=== PATIENT | male | born 1945 | race Caucasian/White ===

== ENCOUNTER → 2017-04-28 | Outpatient (CLI) | payer MEDICARE, BC ==
[2016-03-26 07:41] VITALS: BP 162/94
[~2017-04-28] MED LIST: AMOX500C PO; ASPI325T8 PO; CONTRAST GIVEN MC PRN; FURO40TA4 PO; IOHEXOL 350 MG/ML 100 ML VIAL. IV ONE; LEVO500T59 PO; LISI-334 PO; METO25TA4 PO; METO50TA2 PO; PANT40TA3 PO; POTA20TA12 PO; POTA20TA82 PO; SIMV80TA3 PO; SULF1TAB24 PO
[2017-04-28 08:54] LABS: CREATININE 1.5 mg/dL (0.7-1.3); GFR 46.1; POTASSIUM 4.7 mmol/L (3.5-5.1)
--- NOTE | 2017-04-28 10:16 | RAD ---
CT angiography chest, abdomen and pelvis with contrast 04/28/2017 at 0924 hours Indication: Aortic dissection Comparison: CT chest/abdomen/pelvis 03/25/2016 Technique: Multiple axial CT images of the chest were obtained after the administration of intravenous contrast. 75 mL's of Omnipaque 350 were administered intravenously. Coronal and sagittal reformats are provided. 3-D reconstructions are available. Findings: Vascular findings: An aortic valvular prosthesis is present. Postsurgical changes from a descending aorta repair are identified. The aorta at the sinotubular junction measures 4.1 cm, similar to the prior examination. When measured in similar dimensions, the proximal aortic arch is stable measuring 3.7 cm. There is a common origin of the right brachiocephalic and left common carotid artery. There is a stable penetrating aortic ulcer identified involving the proximal descending aorta (series 3, image 44). There is redemonstration of aortic dissection beginning at the junction of the descending thoracic aorta and abdominal aorta at the diaphragmatic hiatus. The true lumen is patent and supplies the celiac origin which has moderate to high-grade stenosis at the origin with post stenotic dilatation measuring 13 mm, previously measuring similar on 03/25/2016. The false lumen is thrombosed at this level. The true lumen supplies the superior mesenteric artery which is patent. The true lumen at this level measures 2.9 x 1.4 cm, stable. The true lumen supplies the right renal artery. The true lumen supplies the left renal artery as well, however starts to fill the false lumen at the level of the left renal artery origin. The true lumen fills the inferior mesenteric artery which is widely patent. The false lumen predominantly fills the left common iliac artery which is widely patent. The dissection flap extends into the proximal left common iliac artery. The dissection flap extends into the right common iliac artery, right external iliac artery and right internal iliac artery. The true lumen supplies the right external and common femoral artery. The true lumen predominantly fills branches of the right internal iliac artery. Findings are stable from the prior examination from 03/25/2016. Nonvascular findings: Thyroid gland is within normal limits. There are no enlarged lymph nodes in the axilla, medial sternum or hilar regions. Heart size is borderline enlarged. No pericardial effusion. No pleural effusions. No suspicious pulmonary nodules. No focal pulmonary infiltrates. No pulmonary vascular congestion or pneumothorax. Median sternotomy changes are present. The liver, spleen, bilateral adrenal glands, and pancreas are within normal limits. Gallbladder is surgically absent. There are no enlarged lymph nodes in the abdomen or pelvis. There is no abdominal free air. No free fluid in the abdomen or pelvis. Small and large bowel loops are normal in caliber. Colonic diverticulosis is present without adjacent inflammatory changes. A normal appendix is visualized. Numerous simple appearing renal cysts are present and stable from the prior examination. No new or suspicious renal lesions are identified. No hydronephrosis. Kidneys enhance symmetrically. Urinary bladder is within normal limits given degree of distention. Prostate and seminal vesicles are normal. No suspicious osseous lesions are identified. Stable appearance of a T8 compression deformity. Impression: 1. 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 2. Status post post surgical changes from aortic valvular prosthesis and proximal thoracic aortic repair. There is stable appearance of proximal aorta dimensions. 3. 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 There is poststenotic dilatation which appear stable. PQRS Compliance Statement: One or more of the following individualized dose reduction techniques were utilized for this examination: 1. Automated exposure control 2. Adjustment of the mA and/or kV according to patient size 3. Use of iterative reconstruction technique
== END | disposition home or self-care (01) ==
LOC: CT 09:05
PROVIDERS: ATTEND Thoracic Surgery (Cardiothoracic Vascular Surgery)
DX: I71.00 Dissection of unspecified site of aorta (principal); Z98.890 Other specified postprocedural states
CPT/HCPCS: 36415; 71275; 74174; 80048; Q9967

== ENCOUNTER → 2018-05-27 | Outpatient (CLI) | payer MEDICARE, BC ==
[2016-03-26 07:41] VITALS: BP 162/94
[~2018-05-27] MED LIST changes: -CONTRAST GIVEN MC PRN; -IOHEXOL 350 MG/ML 100 ML VIAL. IV ONE; -METO50TA2 PO; +METO50TA6 PO; -SIMV80TA3 PO; +SIMV80TA7 PO
[2018-05-27 08:08] LABS: CALCIUM 9.1 mg/dL (8.5-10.1); CREATININE 1.7 mg/dL (0.7-1.3); GFR 39.8; POTASSIUM 4.5 mmol/L (3.5-5.1)
[2018-05-27 08:09] LABS: CHOLESTEROL/HDL RATIO 3.2
--- NOTE | 2018-05-27 11:57 | CARD ---
MR#: [id number] Date of Study: 05/27/2018 Ordering Physician: REY DURON, Referring Physician: REY DURON, Tech: Pat Mckeon APPROVED REPORT EXAM: Two-dimensional and M-mode echocardiogram with Doppler and color Doppler. Other Information Quality : AverageHR: 62bpm INDICATION Aortic Dissection RISK FACTORS Hypertension Hyperlipidemia Previous Smoker 2D DIMENSIONS RVDd3.8 (2.9-3.5cm)Left Atrium(2D)4.6 (1.6-4.0cm) IVSd1.3 (0.7-1.1cm)Aortic Root(2D)4.2 (2.0-3.7cm) LVDd5.3 (3.9-5.9cm)LVOT Diameter2.2 (1.8-2.4cm) PWd1.3 (0.7-1.1cm)LVDs4.0 (2.5-4.0cm) FS (%) 24.9 %SV65.5 ml LVEF(%)48.9 (>50%) Aortic Valve AoV Peak Keo.244.6cm/sAoV VTI55.0cm AO Peak GR.23.9mmHgLVOT Peak Keo.101.7cm/s AO Mean GR.15mmHgAVA (VMAX)1.53cm2 Mitral Valve MV E Qbvhjbbk47.4cm/sMV DECEL [id number] MV A Hysdpqhk18.8cm/sE/A Ratio0.9 Pulmonary Valve PV Peak Vbspjutt191.2cm/s Tricuspid Valve TR P. Otcncopj621yf/sRAP ZUXBJOPK4igQh TR Peak Gr.69qgAjRBJX11rrEz Pulmonary Vein S1 Xuvmlkpj00.1cm/sD2 Ylrbcaio95.0cm/s PVa ciuhcvxl620lmya LEFT VENTRICLE The left ventricle is normal size. There is borderline to mild concentric left ventricular hypertroph y. The left ventricular systolic function is normal and the ejection fraction is within normal range. The Ejection Fraction is 50-55%. Septal motion suggestive of conduction defect/prior surgery. There is normal LV segmental wall motion. Transmitral Doppler flow pattern is normal for age. RIGHT VENTRICLE The right ventricle is mild to moderately dilated. The right ventricular systolic function is normal. ATRIA The left atrium size is normal. The right atrium size is normal. The interatrial septum is intact wit h no evidence for an atrial septal defect or patent foramen ovale as noted on 2-D or Doppler imaging. AORTIC VALVE Doppler and Color Flow revealed no significant aortic regurgitation. The bioprosthetic aortic valve i s not well visualized. MITRAL VALVE The mitral valve is thickened but opens well. There is no mitral valve stenosis. Doppler and Color Fl ow revealed no mitral valve regurgitation noted. TRICUSPID VALVE The tricuspid valve is normal in structure and function. Doppler and Color Flow revealed trace tricus pid regurgitation. There is no tricuspid valve stenosis. PULMONIC VALVE The pulmonic valve is not well visualized. Doppler and Color Flow revealed mild to moderate pulmonic valvular regurgitation. There is no pulmonic valvular stenosis. GREAT VESSELS The aortic root is mildly to moderately enlarged. Normal pulmonary venous flow (Doppler). The IVC was not visualized. PERICARDIAL EFFUSION There is no evidence of significant pericardial effusion. Critical Notification Critical Value: No <Conclusion> The left ventricular systolic function is normal and the ejection fraction is within normal range. Th e Ejection Fraction is 50-55%. Septal motion suggestive of conduction defect/prior surgery. There is normal LV segmental wall motion . The right ventricle is mild to moderately dilated. Doppler and Color Flow revealed mild to moderate pulmonic valvular regurgitation. The aortic root is mildly to moderately enlarged. Signed by : Rey Duron, Electronically Approved : 05/27/2018 11:55:48
== END | disposition home or self-care (01) ==
LOC: ECHO 07:20
PROVIDERS: ATTEND Internal Medicine Cardiovascular Disease
DX: I37.1 Nonrheumatic pulmonary valve insufficiency (principal); I51.7 Cardiomegaly; E78.00 Pure hypercholesterolemia, unspecified; I12.9 Hypertensive chronic kidney disease with stage 1 through stage 4 chronic kidney disease, or unspecified chronic kidney disease; N18.3 Chronic kidney disease, stage 3 (moderate); I25.10 Atherosclerotic heart disease of native coronary artery without angina pectoris; K21.9 Gastro-esophageal reflux disease without esophagitis; Z95.2 Presence of prosthetic heart valve; Z86.79 Personal history of other diseases of the circulatory system; Z82.49 Family history of ischemic heart disease and other diseases of the circulatory system
CPT/HCPCS: 36415; 80048; 80061; 93306

== ENCOUNTER → 2019-07-18 | Outpatient (CLI) | payer MEDICARE, BC ==
[2016-03-26 07:41] VITALS: BP 162/94
[~2019-07-18] MED LIST changes: +CONTRAST GIVEN. MC PRN; +IOHEXOL 350 MG/ML 100 ML VIAL. IV ONE; -PANT40TA3 PO; +PANT40TA77 PO; +SIMV80TA17 PO; -SIMV80TA7 PO
--- NOTE | 2019-07-18 12:08 | CARD ---
MR#: [id number] Date of Study: 07/18/2019 Ordering Physician: SHAD PETERS, Referring Physician: SHAD PETERS, Tech: Maribel Jaramillo APPROVED REPORT EXAM: Two-dimensional and M-mode echocardiogram with Doppler and color Doppler. Other Information Quality : AverageHR: 65bpm Technically limited study due to body habitus. INDICATION Aortic dissection 2D DIMENSIONS RVDd3.7 (2.9-3.5cm)Left Atrium(2D)4.3 (1.6-4.0cm) IVSd1.3 (0.7-1.1cm)Aortic Root(2D)3.2 (2.0-3.7cm) LVDd4.5 (3.9-5.9cm)LVOT Diameter2.1 (1.8-2.4cm) PWd0.8 (0.7-1.1cm)LVDs2.8 (2.5-4.0cm) FS (%) 38.0 %SV64.3 ml LVEF(%)68.2 (>50%) Aortic Valve AoV Peak Keo.208.6cm/sAoV VTI43.8cm AO Peak GR.17.4mmHgLVOT Peak Keo.89.6cm/s LVOT VTI 18.95cmAO Mean GR.11mmHg ALLEN (VMAX)1.28ol1EDV (VTI)1.46cm2 Mitral Valve MV E Qfylozhz42.8cm/sMV DECEL QBKQ555lv MV A Peykoqgd09.0cm/sMV TSN74gr E/A Ratio0.8MVA (PHT)3.23cm2 TDI E/Lateral E'9.3E/Medial E'15.2 Pulmonary Valve PV Peak Cqobajew068.0cm/sPV Peak Grad.6mmHg Tricuspid Valve RAP [id number] Pulmonary Vein S1 Kqvatapd03.4cm/sD2 Mojxnfoa42.7cm/s PVa [id number] LEFT VENTRICLE The left ventricle is normal size. There is borderline to mild septal left ventricular hypertrophy. T he left ventricular systolic function is normal and the ejection fraction is within normal range. The Ejection Fraction is 60-65%. There is normal LV segmental wall motion. Transmitral Doppler flow xi nathaniel is Grade I-abnormal relaxation pattern. RIGHT VENTRICLE The right ventricle is moderately dilated. The right ventricular systolic function is normal. ATRIA The left atrium is mildly dilated. The right atrium size is normal. The interatrial septum is intact with no evidence for an atrial septal defect or patent foramen ovale as noted on 2-D or Doppler imagi ng. AORTIC VALVE The aortic valve is calcified but opens well. There is a bioprosthetic valve of unknown make and size seated in the aortic position. Not well visualized. Doppler and Color Flow revealed no significant a ortic regurgitation. There is no significant aortic valvular stenosis. MITRAL VALVE The mitral valve is thickened but opens well. Mitral annular calcification is mild. There is no evide nce of mitral valve prolapse. There is no mitral valve stenosis. Doppler and Color-flow revealed trac e mitral regurgitation. TRICUSPID VALVE The tricuspid valve is not well visualized. Doppler and Color Flow revealed trace tricuspid regurgita tion. There is no tricuspid valve stenosis. PULMONIC VALVE The pulmonic valve is not well visualized. Doppler and Color Flow revealed mild pulmonic valvular reg urgitation. There is no pulmonic valvular stenosis. GREAT VESSELS The aortic root is normal in size. The Sinus of valsalva and the ascending aorta are both mildly dila clara. The IVC is normal in size and collapses >50% with inspiration. PERICARDIAL EFFUSION There is no pleural effusion. There is no evidence of significant pericardial effusion. Critical Notification Critical Value: No <Conclusion> The left ventricular systolic function is normal and the ejection fraction is within normal range. Th e Ejection Fraction is 60-65%. The right ventricle is moderately dilated. The aortic valve is calcified but opens well. There is a bioprosthetic valve of unknown make and siz e seated in the aortic position. Not well visualized. Technically very difficult study Signed by : Shad Peters, Electronically Approved : 07/18/2019 12:08:03
--- NOTE | 2019-07-18 16:34 | RAD ---
CT angiography, abdomen and pelvis 07/18/2019 INDICATION: Aortic dissection COMPARISON STUDY: CT angiography of the chest abdomen and pelvis April 28, 2017. TECHNIQUE: Multidetector CT imaging of the abdomen and pelvis is obtained before after the administration of IV contrast. 3-D reconstructions of abdominal and pelvic vasculature were created on an independent workstation and reviewed. FINDINGS: There is a Son B dissection beginning within the inferior most thoracic aorta. There is ectasia of the aorta at the level of the diaphragmatic hiatus where it measures 4.5 x 3.5 cm. At this level there is approximately 60-70% reduction of aortic luminal diameter. The true lumen supplies the celiac axis where there is moderate to high-grade stenosis, which is stable. The superior mesenteric artery supplied by the true lumen where there is minimal stenosis. The right renal artery arises anteriorly from the true lumen appears to be patent. Just below the right renal artery there is subsequent further narrowing of the true lumen, resulting in approximately 80% narrowing. Dissection plane extends to the aortic bifurcation down the right common, proximal external, and internal iliac arteries. There is filling of the inferior mesenteric artery from the true lumen. There is then a retrograde flow through the false lumen which supplies the left kidney. The overall configuration is unchanged with respect to comparison study. The left common and internal iliac artery patent. Left external iliac arteries patent. Bilateral common femoral arteries proximal superficial femoral arteries, and profunda arteries are patent. No free fluid or free air seen in the abdomen or pelvis. No acute abnormalities involving the abdominal viscera are identified. Allowing for slight differences in phase of contrast enhancement multiple bilateral renal cysts are similar. No bowel obstruction is identified. Descending and sigmoid colonic diverticulosis noted no evidence of acute diverticulitis is seen. Or mild diverticular disease involving the proximal colon noted. The appendix is unremarkable. No acute abnormalities involving the lung bases are identified. No acute appearing osseous abnormalities are seen. 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 IMPRESSION: 1. Stable configuration of the inferior thoracic and abdominal aorta including stable appearance of type B dissection as described above in detail. 2. No other acute intra-abdominal abnormalities are identified CT DOSING PQRS STATEMENT: One or more of the following individualized dose reduction techniques were utilized for this examination: 1. Automated exposure control 2. Adjustment of the mA and/or kV according to patient size 3. Use of iterative reconstruction technique Electronically signed by: Harvey Bonilla MD (07/18/2019 4:31 PM) [id number]
== END | disposition home or self-care (01) ==
LOC: CT 09:34
PROVIDERS: ATTEND Internal Medicine Cardiovascular Disease
DX: I08.8 Other rheumatic multiple valve diseases (principal); I71.00 Dissection of unspecified site of aorta; I25.10 Atherosclerotic heart disease of native coronary artery without angina pectoris; Z95.5 Presence of coronary angioplasty implant and graft
CPT/HCPCS: 74174; 93306; Q9967

== ENCOUNTER 2021-07-21 19:45 | Inpatient (IN) | payer MEDICARE, BC ==
[2021-07-20 23:00] VITALS: BP 160/88
[~2021-07-21] VITALS: Ht 180.3 cm; Wt 130.0 kg
[~2021-07-21 19:45] MED LIST changes: -CONTRAST GIVEN. MC PRN; -IOHEXOL 350 MG/ML 100 ML VIAL. IV ONE; -LISI-334 PO; +LISI20TA18 PO; +POTA20TA4 PO; -POTA20TA82 PO
--- NOTE | 2021-07-21 20:19 | PHYS DOC ---
Past Medical History Past Medical History: CAD, High Cholesterol, Hypertension Past Surgical History: Coronary Bypass Surgery, Other Additional Past Surgical Histo: aorta repair Smoking Status: Former Smoker Alcohol Use: None Drug Use: None General Adult EDM: Chief Complaint: RECTAL BLEED HPI: HPI: Patient is a 75-year-old male presenting with rectal bleed. Onset was today without any known inciting event, trauma, sick contact, exposure, sick contact or travel. Nothing known makes better, bearing-down makes worse. Patient reports timing of symptoms has been constant since onset this morning. Denies any pain but admits ongoing bright red blood per rectum that appears in losing in his been present on tissue paper and copious amounts in stool. He admits he is on 325 mg aspirin. He has had x1 prior colonoscopy in the 70s and was unremarkable. He does admit he has family history of colon cancer. Denies any significant changes in health or medication recently, denies any obvious changes in stool caliber. Denies any significant symptoms such as fatigue, lightheadedness, dizziness, chest pain, ripping or tearing in chest, shortness of breath or other concerning abnormalities Review of Systems: Review of Systems: Fourteen body systems of review of systems have been reviewed. See HPI for pertinent positives and negative responses, other saini all other systems are negative, non-pertinent or non-contributory Heart Score: C/O Chest Pain: No HEART Score for Chest Pain: HEART Score for Chest Pain Response (Comments) Value History Slighlty/Non-Suspicious 0 Age > 65 2 Risk Factors >3 Risk Factors or Hx CAD 2 Total 4 Risk Factors: Risk Factors: DM, Current or recent (<one month) smoker, HTN, HLP, family history of CAD, obesity. Risk Scores: Score 0 - 3: 2.5% MACE over next 6 weeks - Discharge Home Score 4 - 6: 20.3% MACE over next 6 weeks - Admit for Clinical Observation Score 7 - 10: 72.7% MACE over next 6 weeks - Early Invasive Strategies Allergies: Allergies: Allergies Coded Allergies Type Severity Reaction Last Updated Verified No Known Drug Allergies 02/26/14 No Physical Exam: PE: Constitutional: Well developed, well nourished, age-appropriate male who is am bulatory to ER room in no apparent distress, nontoxic in appearance HENT: Normocephalic, atraumatic, bilateral external ears normal, oropharynx moist, no oral exudates, nose normal. Eyes: PERRLA, EOMI, conjunctiva normal, no discharge. Neck: Normal range of motion, no tenderness, supple, no stridor. Cardiovascular: Heart rate regular, sinus rhythm, no murmurs rubs or gallops Lungs & Thorax: Bilateral breath sounds clear to auscultation Abdomen: Bowel sounds normal, soft, no tenderness, no masses, no pulsatile masses. Nonsurgical abdomen, no peritoneal signs : Genitals unremarkable. Anus examined with blood clots present to external surface of gluteal cheeks. Anal sphincter intact. There is bulging, pearly appearing masslike structure appearing from anus externally with bruising present internally. UNA performed with palpable mass that is cordlike in nature at 12 o'clock position palpated within rectal vault Skin: Warm, dry, no erythema, no rash. Back: No tenderness, no CVA tenderness. Extremities: No tenderness, no cyanosis, no clubbing, ROM intact, no edema. Neurologic: Alert and oriented X 3, grossly normal motor & sensory function, no focal deficits noted. Psychologic: Affect normal, judgement normal, mood normal. Current Patient Data: Labs: Laboratory Tests Test 07/21/21 20:21 White Blood Count 6.3 x10^3/uL Red Blood Count 4.62 x10^6/uL Hemoglobin 14.5 g/dL Hematocrit 42.8 % Mean Corpuscular Volume 93 fL Mean Corpuscular Hemoglobin 31 pg Mean Corpuscular Hemoglobin Concent 34 g/dL Red Cell Distribution Width 14.2 % Platelet Count 239 x10^3/uL Neutrophils (%) (Auto) 56 % Lymphocytes (%) (Auto) 30 % Monocytes (%) (Auto) 11 % Eosinophils (%) (Auto) 3 % Basophils (%) (Auto) 1 % Neutrophils # (Auto) 3.5 x10^3/uL Lymphocytes # (Auto) 1.9 x10^3/uL Monocytes # (Auto) 0.7 x10^3/uL Eosinophils # (Auto) 0.2 x10^3/uL Basophils # (Auto) 0.1 x10^3/uL Prothrombin Time 12.9 SEC Prothromb Time International Ratio 1.0 Activated Partial Thromboplast Time 30 SEC Stool Occult Blood Positive Sodium Level 140 mmol/L Potassium Level 4.1 mmol/L Chloride Level 104 mmol/L Carbon Dioxide Level 23 mmol/L Anion Gap 13 Blood Urea Nitrogen 30 mg/dL Creatinine 1.6 mg/dL Estimated GFR (Cockcroft-Gault) 42.3 BUN/Creatinine Ratio 19 Glucose Level 101 mg/dL Calcium Level 8.8 mg/dL Total Bilirubin 0.5 mg/dL Aspartate Amino Transf (AST/SGOT) 22 U/L Alanine Aminotransferase (ALT/SGPT) 26 U/L Alkaline Phosphatase 92 U/L Total Protein 8.1 g/dL Albumin 3.9 g/dL Albumin/Globulin Ratio 0.9 Vital Signs: Vital Signs Date Time Temp Pulse Resp B/P (MAP) Pulse Ox O2 Delivery O2 Flow Rate FiO2 07/21/21 20:05 98.4 93 18 158/89 (112) 98 Room Air 98.4 Vital Signs Date Time Temp Pulse Resp B/P (MAP) Pulse Ox O2 Delivery O2 Flow Rate FiO2 07/21/21 20:05 98.4 93 18 158/89 (112) 98 Room Air 98.4 EKG: EKG: Alen EKG ordered and interpreted by myself only 40 hours as sinus rhythm 88 bpm, unremarkable intervals, no axis deviation, no obvious ischemic findings, x1 PVC seen, no STEMI Radiology/Procedures: Radiology/Procedures: [] Course & Med Decision Making: Course & Med Decision Making ABCs unremarkable HPI physical exam and comprehensive ER work-up obtained concerning for ongoing lower GI bleed. Unclear if internal hemorrhoids protruding through versus rectal mass in individual who has not had a colonoscopy in the past 50 years with family history of colon cancer Slow oozing present without any active hemorrhage. No indication for any blood transfusion in ER setting but obvious need for urgent GI consultation within upcoming 24 hours. Hospitalist contacted and case reviewed, patient accepted under the care of Dr. Garcia for admission Crystal Disclaimer: Crystal Disclaimer: This electronic medical record was generated, in whole or in part, using a voice recognition dictation system. Departure Departure Impression: Primary Impression: Lower GI bleed Additional Impression: Rectal mass Disposition: ADMITTED INPATIENT Admitting Physician: HOLA (dr becerril) Condition: STABLE Referrals: SINTIA HOWARD MD (PCP) JAMES CURIEL DO Jul 21, 2021 20:19
[2021-07-21 20:34] LABS: BASO # 0.1 x10^3/uL (0.0-0.2); BASO % 1 % (0-3); EOS # 0.2 x10^3/uL (0.0-0.7); EOS % 3 % (0-3); HEMATOCRIT 42.8 % (39.0-53.0); HEMOGLOBIN 14.5 g/dL (13.0-17.5); LYMPH # 1.9 x10^3/uL (1.0-4.8); LYMPH % 30 % (24-48); MEAN CORPUSCULAR HEMOGLOBIN 31 pg (25-35); MEAN CORPUSCULAR HGB CONC 34 g/dL (31-37); MEAN CORPUSCULAR VOLUME 93 fL (79-100); MONO # 0.7 x10^3/uL (0.0-1.1); MONO % 11 % (0-9); NEUT # 3.5 x10^3/uL (1.8-7.7); NEUT % 56 % (31-73); PLATELET COUNT 239 x10^3/uL (140-400); RED BLOOD COUNT 4.62 x10^6/uL (4.30-5.70); RED CELL DISTRIBUTION WIDTH 14.2 % (11.5-14.5); WHITE BLOOD COUNT 6.3 x10^3/uL (4.0-11.0)
[2021-07-21 20:38] LABS: FECAL OB PT POSITIVE (NEG)
[2021-07-21 20:42] LABS: PROTHROMBIN TIME PATIENT 12.9 SEC (11.7-14.0)
[2021-07-21 20:47] LABS: CALCIUM 8.8 mg/dL (8.5-10.1); CREATININE 1.6 mg/dL (0.7-1.3); GFR 42.3; POTASSIUM 4.1 mmol/L (3.5-5.1)
[2021-07-21 20:52] LABS: ALBUMIN 3.9 g/dL (3.4-5.0); ALBUMIN/GLOBULIN RATIO 0.9 (1.0-1.7); TOTAL BILIRUBIN 0.5 mg/dL (0.2-1.0); TOTAL PROTEIN 8.1 g/dL (6.4-8.2)
[2021-07-21 23:00] VITALS: BP 160/88
--- NOTE | 2021-07-21 23:21 | EKG ---
[facility] [address] [place] [address] Test Date: 2021-07-21 Test Time: 20:32:52 Pat Name: MARCY SOLANO Department: Room: 538 1 Gender: M [employer] Fe[employer]: : 1945 Requested By: JAMES CURIEL Order Number: [id number] Reading MD: Rey Duron MD Measurements Intervals [place] Rate: 88 P: 10 TN: 168 QRS: 26 QRSD: 100 T: -12 QT: 372 QTc: 454 Interpretive Statements SINUS RHYTHM PVC'S NON-SPECIFIC ST/T CHANGES Electronically Signed On 07-22-2021 9:09:44 SPECIAL ORDER JEWELER by Rey Duron MD
[2021-07-21] MEDS ORDERED: AMOX500C PO (23:59)
[2021-07-21] MEDS ORDERED: LISI30TA4 PO (23:59)
[2021-07-22] MEDS ORDERED: ACETAMINOPHEN 325 MG TABLET. PO PRN (02:00)
[2021-07-22] MEDS ORDERED: fentaNYL PF VIAL 100 MCG/2 ML VIAL IVP PRN (02:00)
[2021-07-22] MEDS ORDERED: ZOLPIDEM 5 MG TABLET. PO PRN (02:00)
[2021-07-22 02:19] LABS: BASO % 1 % (0-3); EOS # 0.2 x10^3/uL (0.0-0.7); EOS % 3 % (0-3); HEMATOCRIT 39.3 % (39.0-53.0); HEMOGLOBIN 13.1 g/dL (13.0-17.5); LYMPH % 36 % (24-48); MEAN CORPUSCULAR HEMOGLOBIN 31 pg (25-35); MEAN CORPUSCULAR HGB CONC 33 g/dL (31-37); MEAN CORPUSCULAR VOLUME 93 fL (79-100); MONO # 0.6 x10^3/uL (0.0-1.1); MONO % 11 % (0-9); NEUT # 2.8 x10^3/uL (1.8-7.7); NEUT % 50 % (31-73); PLATELET COUNT 215 x10^3/uL (140-400); RED BLOOD COUNT 4.24 x10^6/uL (4.30-5.70); RED CELL DISTRIBUTION WIDTH 14.3 % (11.5-14.5); WHITE BLOOD COUNT 5.6 x10^3/uL (4.0-11.0)
[2021-07-22 03:00] VITALS: BP 130/74
[2021-07-22 06:44] LABS: BASO # 0.1 x10^3/uL (0.0-0.2); BASO % 1 % (0-3); EOS # 0.2 x10^3/uL (0.0-0.7); EOS % 3 % (0-3); HEMATOCRIT 39.6 % (39.0-53.0); HEMOGLOBIN 13.3 g/dL (13.0-17.5); LYMPH # 1.9 x10^3/uL (1.0-4.8); LYMPH % 39 % (24-48); MEAN CORPUSCULAR HEMOGLOBIN 31 pg (25-35); MEAN CORPUSCULAR HGB CONC 34 g/dL (31-37); MEAN CORPUSCULAR VOLUME 92 fL (79-100); MONO # 0.5 x10^3/uL (0.0-1.1); MONO % 11 % (0-9); NEUT # 2.2 x10^3/uL (1.8-7.7); NEUT % 46 % (31-73); PLATELET COUNT 217 x10^3/uL (140-400); RED BLOOD COUNT 4.33 x10^6/uL (4.30-5.70); RED CELL DISTRIBUTION WIDTH 14.4 % (11.5-14.5); WHITE BLOOD COUNT 4.8 x10^3/uL (4.0-11.0)
[2021-07-22 07:00] VITALS: BP 142/69
--- NOTE | 2021-07-22 09:20 | HP ---
DATE OF SERVICE: 07/22/2021 ADMIT DATE: 07/21/2021 CHIEF COMPLAINT: Rectal bleeding. HISTORY OF PRESENT ILLNESS: The patient is a pleasant 75-year-old male who has had a long history of rectal bleeding. He states he usually has large hemorrhoids that developed and then they ruptured. Once again, he thought it might be a rectal bleed from his hemorrhoids, but the ER doctors also concerned it could be a rectal mass. I discussed the case with ER physician. We are going to admit the patient and consult GI. PAST MEDICAL HISTORY: Chronic hemorrhoids, hypertension, CAD, hyperlipidemia, coronary bypass surgery, aorta surgery, previous tobacco abuse. ALLERGIES: None. FAMILY HISTORY: Diabetes. SOCIAL HISTORY: He is retired. Does not drink, smoke or take drugs (he quit smoking). MEDICATIONS: Reviewed, please refer to the MRAD. REVIEW OF SYSTEMS: GENERAL: No history of weight change, weakness or fevers. SKIN: No bruising, hair changes or rashes. EYES: No blurred, double or loss of vision. NOSE AND THROAT: No history of nosebleeds, hoarseness or sore throat. HEART: No history of palpitations, chest pain or shortness of breath on exertion. LUNGS: Denies cough, hemoptysis, wheezing or shortness of breath. GASTROINTESTINAL: He complains of rectal bleeding. GENITOURINARY: No history of frequency, urgency, hesitancy or nocturia. NEUROLOGIC: Denies history of numbness, tingling, tremor or weakness. PSYCHIATRIC: No history of panic, anxiety or depression. ENDOCRINE: No history of heat or cold intolerance, polyuria or polydipsia. EXTREMITIES: Denies muscle weakness, joint pain, pain on walking or stiffness. PHYSICAL EXAMINATION: VITALS: Within normal limits and are stable. GENERAL: No apparent distress. Alert and oriented. HEENT: Normal cephalic atraumatic, external auditory canals are patent EYES: Extraocular muscles are intact, pupils are equally round and reactive to light and accommodation MUSCULOSKELETAL: Well developed, well nourished, good range of motion ENDOCRINE: No thyromegaly was palpated LYMPHATICS: No cervical chain or axillary nodes were noted HEMATOPOIETIC: No bruising NECK: Supple, no JVD, no thyromegaly was noted. LUNGS: Clear to auscultation in all lung davis without rhonchi or wheezing. HEART: RRR, S1, S2 present. Peripheral pulses intact, no obvious murmurs were noted. ABDOMEN: Soft, nontender. Positive bowel sounds no organomegaly, normal bowel sounds. EXTREMITIES: Without any cyanosis, clubbing, or edema. Pedal pulses intact, Homans sign is negative. NEUROLOGIC: Normal speech, normal tone. A and O x 3, moves all extremities, no obvious focal deficits. PSYCHIATRIC: Normal affect, normal mood. Stable. SKIN: No ulcerations or rashes, good skin turgor, no jaundice. VASCULAR: Good capillary refill, neurovascular bundle appears to be intact. LABORATORY DATA: Hematology is normal. Electrolytes are normal other than a BUN of 30 and creatinine 1.6. INR is 1. Stool occult blood was positive. COVID testing is negative. IMAGING: Pending. ASSESSMENT AND PLAN: Rectal bleeding with possible mass. The patient has been admitted. We are consulting GI. Trend hemoglobin. Home meds. Deep venous thrombosis prophylaxis. Full code. I held his home aspirin for now until the bleeding stops. We will also consult Nephrology regarding his chronic renal insufficiency. AMBROSIO DR: Gilberto TID: [id number]
--- NOTE | 2021-07-22 09:36 | PDOC2 ---
GI CONSULT Date of Service: DATE: 07/22/21 TIME: 09:36 Reason For Consult: lower GI bleed, rectal mass HPI: HPI: 75 y/o male admitted through ER. H/o intermittent rectal bleeding - small amounts of red blood associated w/ hard stools/straining and "irritation" - something "comes out and then goes back in" - possible hemorrhoid history. Yesterday bleeding recurred and was more significant. To ER where rectal exam showed "oozing hemorrhoids" - "bulging pearly mass with bruising" and "palpable cordlike mass in rectal vault at 12:00." Bleeding ongoing overnight - noted on bedding. Lab and vitals normal/stable. Denies reflux/heartburn, dysphagia, n/v, abd pain, diarrhea (though sometimes has a loose stool if he has more than one stool in a day), chronic constipation (does describe stool "coming out forcefully in a ball"), change in appetite, or weight loss. Describes "upper and lower GI" in the 1970s - recalls colon prep, says lower procedure done in primary doctor's office, upper procedure done at perhaps a surgery center - apparently awake for both. Diverticulosis on past imaging. S/p cholecystectomy. No liver, pancreas, or PUD history. On ASA. H/o urinary retention - self caths at home. Father had colon cancer. PMH: PMH: HTN, HLD, urinary retention, CKD, UTI, arthritis, endocarditis, DVT, asthma aortic dissection repair, AVR, cholecystectomy, left inguinal hernia repair FH: Family History: Cancer (colon - father) Social History: Smoke: Quit ALCOHOL: none Drugs: None ROS: GEN: Denies fevers, chills, sweats HEENT: Denies blurred vision, sore throat CV: Denies chest pain RESP: Denies shortness of air, cough GI: Per HPI : Denies hematuria, dysuria ENDO: Denies weight changes NEURO: Denies confusion, dizziness MSK: Denies weakness, joint pain/swelling SKIN: Denies jaundice, pruritus Vitals: Vitals: Vital Signs Date Time Temp Pulse Resp B/P (MAP) Pulse Ox O2 Delivery O2 Flow Rate FiO2 07/22/21 07:00 97.8 69 20 142/69 (93) 97 Room Air 97.8 Labs: Labs: Laboratory Tests Test 07/21/21 20:21 07/21/21 21:35 07/22/21 01:55 07/22/21 05:30 White Blood Count 6.3 x10^3/uL (4.0-11.0) 5.6 x10^3/uL (4.0-11.0) 4.8 x10^3/uL (4.0-11.0) Red Blood Count 4.62 x10^6/uL (4.30-5.70) 4.24 x10^6/uL (4.30-5.70) 4.33 x10^6/uL (4.30-5.70) Hemoglobin 14.5 g/dL (13.0-17.5) 13.1 g/dL (13.0-17.5) 13.3 g/dL (13.0-17.5) Hematocrit 42.8 % (39.0-53.0) 39.3 % (39.0-53.0) 39.6 % (39.0-53.0) Mean Corpuscular Volume 93 fL (79-100) 93 fL (79-100) 92 fL (79-100) Mean Corpuscular Hemoglobin 31 pg (25-35) 31 pg (25-35) 31 pg (25-35) Mean Corpuscular Hemoglobin Concent 34 g/dL (31-37) 33 g/dL (31-37) 34 g/dL (31-37) Red Cell Distribution Width 14.2 % (11.5-14.5) 14.3 % (11.5-14.5) 14.4 % (11.5-14.5) Platelet Count 239 x10^3/uL (140-400) 215 x10^3/uL (140-400) 217 x10^3/uL (140-400) Neutrophils (%) (Auto) 56 % (31-73) 50 % (31-73) 46 % (31-73) Lymphocytes (%) (Auto) 30 % (24-48) 36 % (24-48) 39 % (24-48) Monocytes (%) (Auto) 11 % (0-9) 11 % (0-9) 11 % (0-9) Eosinophils (%) (Auto) 3 % (0-3) 3 % (0-3) 3 % (0-3) Basophils (%) (Auto) 1 % (0-3) 1 % (0-3) 1 % (0-3) Neutrophils # (Auto) 3.5 x10^3/uL (1.8-7.7) 2.8 x10^3/uL (1.8-7.7) 2.2 x10^3/uL (1.8-7.7) Lymphocytes # (Auto) 1.9 x10^3/uL (1.0-4.8) 2.0 x10^3/uL (1.0-4.8) 1.9 x10^3/uL (1.0-4.8) Monocytes # (Auto) 0.7 x10^3/uL (0.0-1.1) 0.6 x10^3/uL (0.0-1.1) 0.5 x10^3/uL (0.0-1.1) Eosinophils # (Auto) 0.2 x10^3/uL (0.0-0.7) 0.2 x10^3/uL (0.0-0.7) 0.2 x10^3/uL (0.0-0.7) Basophils # (Auto) 0.1 x10^3/uL (0.0-0.2) 0.0 x10^3/uL (0.0-0.2) 0.1 x10^3/uL (0.0-0.2) Prothrombin Time 12.9 SEC (11.7-14.0) Prothromb Time International Ratio 1.0 (0.8-1.1) Activated Partial Thromboplast Time 30 SEC (24-38) Stool Occult Blood Positive (NEG) Sodium Level 140 mmol/L (136-145) Potassium Level 4.1 mmol/L (3.5-5.1) Chloride Level 104 mmol/L (98-107) Carbon Dioxide Level 23 mmol/L (21-32) Anion Gap 13 (6-14) Blood Urea Nitrogen 30 mg/dL (8-26) Creatinine 1.6 mg/dL (0.7-1.3) Estimated GFR (Cockcroft-Gault) 42.3 BUN/Creatinine Ratio 19 (6-20) Glucose Level 101 mg/dL (70-99) Lactic Acid Level 1.4 mmol/L (0.4-2.0) Calcium Level 8.8 mg/dL (8.5-10.1) Total Bilirubin 0.5 mg/dL (0.2-1.0) Aspartate Amino Transf (AST/SGOT) 22 U/L (15-37) Alanine Aminotransferase (ALT/SGPT) 26 U/L (16-63) Alkaline Phosphatase 92 U/L (46-116) Total Protein 8.1 g/dL (6.4-8.2) Albumin 3.9 g/dL (3.4-5.0) Albumin/Globulin Ratio 0.9 (1.0-1.7) SARS-CoV-2 Antigen (Rapid) Negative (NEGATIVE) Allergies: Coded Allergies: No Known Drug Allergies (Unverified , 02/26/14) Medications: see EMR Imaging: Imaging: none this admission - reviewed from past - see records PE: GEN: NAD - sitting on edge of bed w/ tray of clears, has shirt on but no bottoms, some spots of dried red blood on bedding HEENT: Atraumatic, PERRL LUNGS: CTAB HEART: RRR ABD: NABS, S/NT, round/large EXTREMITY: No edema SKIN: No rashes, no jaundice NEURO/PSYCH: A & O 3 rectal exam deferred A/P: A/P: Rectal bleeding, abnormal rectal exam H/o AVR, CKD CRC screen - ?colonoscopy in the 1970s Diverticulosis S/p cholecystectomy FH colon cancer -- Significant time spent - we discussed options moving forward including colonoscopy (probably can pursue in outpatient setting if remains stable) - he's not sure he'd like to proceed but will consider. Hold ASA if able, observe for ongoing bleeding, follow labs (Hgb x 3 WNL), keep to clear liquids for now. Will return w/ Dr. Domínguez later. CHACHO HAGEN Jul 22, 2021 09:36
[2021-07-22] MEDS: LISINOPRIL 10 MG TABLET PO SCH (09:46)
[2021-07-22] MEDS: POTASSIUM CHLORIDE 20 MEQ TABLET.ER. PO SCH (09:47)
[2021-07-22] MEDS: METOPROLOL TART IMMED RELEASE 50 MG TABLET. PO SCH ×2 (09:50→20:26)
[2021-07-22 11:00] VITALS: BP 126/75
--- NOTE | 2021-07-22 11:03 | PDOC2 ---
CONSULT Date of Consult Date of Consult DATE: 07/22/21 TIME: 10:57 Reason for Consult Reason for Consult: CKD VS NURY Referring Physician Referring Physician: ALINE Identification/Chief Complaint Chief Complaint RECTAL BLEEDING Source Source: Chart review, Patient History of Present Illness Reason for Visit: THIS IS A 75 YR OLD WITH HX OF RECTAL BLEEDING. PRESENTS WITH BLEEDING AGAIN. UNDERGOING GI EVAL NOW. RENAL CONSULT FOR CR OF 1.6. OLD RECORDS SHOW CKD STAGE 3B WITH CR OF 1.6. HAS HX OF URINARY RETENTION AND HAS BEEN DOING ONCE DAILY SELF CATH SINCE 2009. HEMODYNAMICALLY STABLE. NO NEPHROTOXINS NOTED. NO FURTHER UROLOGY HX TO REVIEW HERE AND HE DOES NOT KNOW WHERE OR WHICH UROLOGIST HE SAW IN THE PAST. Past Medical History Cardiovascular: HTN, Hyperlipidemia, Other Pulmonary: No pertinent hx CENTRAL NERVOUS SYSTEM: Other GI: GERD Heme/Onc: No pertinent hx Hepatobiliary: No pertinent hx Psych: No pertinent hx Musculoskeletal: Osteoarthritis Rheumatologic: No pertinent hx Infectious disease: No pertinent hx Renal/: Chronic renal insuff, UTI, Other Endocrine: No pertinent hx Past Surgical History Past Surgical History: Hernia Repair, Other Family History Family History: Coronary Artery Disease Social History Quit ALCOHOL: none Drugs: None Lives: with Family Current Problem List Problem List Problems Medical Problems: (1) Lower GI bleed Status: Acute (2) Rectal mass Status: Acute Current Medications Current Medications Current Medications Fentanyl Citrate (Fentanyl 2ml Vial) 50 mcg PRN Q2HR PRN IVP SEVERE PAIN 7-10; Start 07/22/21 at 02:00 Acetaminophen (Tylenol) 650 mg PRN Q6HRS PRN PO MILD PAIN / TEMP > 100.3'F; Start 07/22/21 at 02:00 Zolpidem Tartrate (Ambien) 5 mg PRN QHS PRN PO INSOMNIA; Start 07/22/21 at 02:00 Furosemide (Lasix) 40 mg DAILY PO ; Start 07/23/21 at 09:00 Metoprolol Tartrate (Lopressor) 50 mg BID PO Last administered on 07/22/21at 09:50; Start 07/22/21 at 10:00 Potassium Chloride (Klor-Con) 20 meq DAILY PO Last administered on 07/22/21at 09:47; Start 07/22/21 at 10:00 Amoxicillin (Amoxil) 500 mg BID PO ; Start 07/22/21 at 10:00 Lisinopril (Prinivil) 30 mg DAILY PO Last administered on 07/22/21at 09:46; Start 07/22/21 at 10:00 Simvastatin (Zocor) 80 mg QHS PO ; Start 07/22/21 at 21:00 Active Scripts Active Reported Lisinopril 30 Mg Tablet 1 Tab PO DAILY Amoxicillin 500 Mg Capsule 1 Cap PO BID Metoprolol Tartrate 50 Mg Tablet 1 Tab PO BID Potassium Chloride (Potassium Chloride) 20 Meq Tablet.er 20 Meq PO DAILY Aspirin 325 Mg Tablet 1 Tab PO DAILY Furosemide 40 Mg Tablet 1 Tab PO DAILY Simvastatin 80 Mg Tablet 1 Tab PO DAILY Allergies Allergies: Coded Allergies: No Known Drug Allergies (Unverified , 02/26/14) ROS General: YES: Fatigue PSYCHOLOGICAL ROS: YES: Anxiety, Depression Eyes: Yes Decreased vision HEENT: YES: Deb ALLERGY AND IMMUNOLOGY: YES: Seasonal Allergies Respiratory: YES: Cough Gastrointestinal: Yes Constipation Genitourinary: YES Frequency, YES Retention Musculoskeletal: Yes Muscular Weakness Neurological: Yes Weakness Skin: Yes Dry Skin Physical Exam General: Alert, Oriented X3, Cooperative, No acute distress HEENT: Atraumatic, PERRLA, EOMI Lungs: Clear to auscultation Heart: Regular rate Abdomen: Normal bowel sounds, Soft, No tenderness Extremities: No clubbing Skin: No breakdown Neuro: Normal speech Psych/Mental Status: Mental status NL, Mood NL MUSCULOSKELETAL: No joint tenderness, No deformity, No swelling Vitals VITALS Vital Signs Date Time Temp Pulse Resp B/P (MAP) Pulse Ox O2 Delivery O2 Flow Rate FiO2 07/22/21 09:50 69 142/69 07/22/21 07:00 97.8 20 97 Room Air 97.8 Labs Labs Laboratory Tests Test 07/21/21 20:21 07/21/21 21:35 07/22/21 01:55 07/22/21 05:30 White Blood Count 6.3 x10^3/uL (4.0-11.0) 5.6 x10^3/uL (4.0-11.0) 4.8 x10^3/uL (4.0-11.0) Red Blood Count 4.62 x10^6/uL (4.30-5.70) 4.24 x10^6/uL (4.30-5.70) 4.33 x10^6/uL (4.30-5.70) Hemoglobin 14.5 g/dL (13.0-17.5) 13.1 g/dL (13.0-17.5) 13.3 g/dL (13.0-17.5) Hematocrit 42.8 % (39.0-53.0) 39.3 % (39.0-53.0) 39.6 % (39.0-53.0) Mean Corpuscular Volume 93 fL (79-100) 93 fL (79-100) 92 fL (79-100) Mean Corpuscular Hemoglobin 31 pg (25-35) 31 pg (25-35) 31 pg (25-35) Mean Corpuscular Hemoglobin Concent 34 g/dL (31-37) 33 g/dL (31-37) 34 g/dL (31-37) Red Cell Distribution Width 14.2 % (11.5-14.5) 14.3 % (11.5-14.5) 14.4 % (11.5-14.5) Platelet Count 239 x10^3/uL (140-400) 215 x10^3/uL (140-400) 217 x10^3/uL (140-400) Neutrophils (%) (Auto) 56 % (31-73) 50 % (31-73) 46 % (31-73) Lymphocytes (%) (Auto) 30 % (24-48) 36 % (24-48) 39 % (24-48) Monocytes (%) (Auto) 11 % (0-9) 11 % (0-9) 11 % (0-9) Eosinophils (%) (Auto) 3 % (0-3) 3 % (0-3) 3 % (0-3) Basophils (%) (Auto) 1 % (0-3) 1 % (0-3) 1 % (0-3) Neutrophils # (Auto) 3.5 x10^3/uL (1.8-7.7) 2.8 x10^3/uL (1.8-7.7) 2.2 x10^3/uL (1.8-7.7) Lymphocytes # (Auto) 1.9 x10^3/uL (1.0-4.8) 2.0 x10^3/uL (1.0-4.8) 1.9 x10^3/uL (1.0-4.8) Monocytes # (Auto) 0.7 x10^3/uL (0.0-1.1) 0.6 x10^3/uL (0.0-1.1) 0.5 x10^3/uL (0.0-1.1) Eosinophils # (Auto) 0.2 x10^3/uL (0.0-0.7) 0.2 x10^3/uL (0.0-0.7) 0.2 x10^3/uL (0.0-0.7) Basophils # (Auto) 0.1 x10^3/uL (0.0-0.2) 0.0 x10^3/uL (0.0-0.2) 0.1 x10^3/uL (0.0-0.2) Prothrombin Time 12.9 SEC (11.7-14.0) Prothromb Time International Ratio 1.0 (0.8-1.1) Activated Partial Thromboplast Time 30 SEC (24-38) Stool Occult Blood Positive (NEG) Sodium Level 140 mmol/L (136-145) Potassium Level 4.1 mmol/L (3.5-5.1) Chloride Level 104 mmol/L (98-107) Carbon Dioxide Level 23 mmol/L (21-32) Anion Gap 13 (6-14) Blood Urea Nitrogen 30 mg/dL (8-26) Creatinine 1.6 mg/dL (0.7-1.3) Estimated GFR (Cockcroft-Gault) 42.3 BUN/Creatinine Ratio 19 (6-20) Glucose Level 101 mg/dL (70-99) Lactic Acid Level 1.4 mmol/L (0.4-2.0) Calcium Level 8.8 mg/dL (8.5-10.1) Total Bilirubin 0.5 mg/dL (0.2-1.0) Aspartate Amino Transf (AST/SGOT) 22 U/L (15-37) Alanine Aminotransferase (ALT/SGPT) 26 U/L (16-63) Alkaline Phosphatase 92 U/L (46-116) Total Protein 8.1 g/dL (6.4-8.2) Albumin 3.9 g/dL (3.4-5.0) Albumin/Globulin Ratio 0.9 (1.0-1.7) SARS-CoV-2 Antigen (Rapid) Negative (NEGATIVE) Laboratory Tests Test 07/21/21 20:21 07/21/21 21:35 07/22/21 01:55 07/22/21 05:30 White Blood Count 6.3 x10^3/uL (4.0-11.0) 5.6 x10^3/uL (4.0-11.0) 4.8 x10^3/uL (4.0-11.0) Red Blood Count 4.62 x10^6/uL (4.30-5.70) 4.24 x10^6/uL (4.30-5.70) 4.33 x10^6/uL (4.30-5.70) Hemoglobin 14.5 g/dL (13.0-17.5) 13.1 g/dL (13.0-17.5) 13.3 g/dL (13.0-17.5) Hematocrit 42.8 % (39.0-53.0) 39.3 % (39.0-53.0) 39.6 % (39.0-53.0) Mean Corpuscular Volume 93 fL (79-100) 93 fL (79-100) 92 fL (79-100) Mean Corpuscular Hemoglobin 31 pg (25-35) 31 pg (25-35) 31 pg (25-35) Mean Corpuscular Hemoglobin Concent 34 g/dL (31-37) 33 g/dL (31-37) 34 g/dL (31-37) Red Cell Distribution Width 14.2 % (11.5-14.5) 14.3 % (11.5-14.5) 14.4 % (11.5-14.5) Platelet Count 239 x10^3/uL (140-400) 215 x10^3/uL (140-400) 217 x10^3/uL (140-400) Neutrophils (%) (Auto) 56 % (31-73) 50 % (31-73) 46 % (31-73) Lymphocytes (%) (Auto) 30 % (24-48) 36 % (24-48) 39 % (24-48) Monocytes (%) (Auto) 11 % (0-9) 11 % (0-9) 11 % (0-9) Eosinophils (%) (Auto) 3 % (0-3) 3 % (0-3) 3 % (0-3) Basophils (%) (Auto) 1 % (0-3) 1 % (0-3) 1 % (0-3) Neutrophils # (Auto) 3.5 x10^3/uL (1.8-7.7) 2.8 x10^3/uL (1.8-7.7) 2.2 x10^3/uL (1.8-7.7) Lymphocytes # (Auto) 1.9 x10^3/uL (1.0-4.8) 2.0 x10^3/uL (1.0-4.8) 1.9 x10^3/uL (1.0-4.8) Monocytes # (Auto) 0.7 x10^3/uL (0.0-1.1) 0.6 x10^3/uL (0.0-1.1) 0.5 x10^3/uL (0.0-1.1) Eosinophils # (Auto) 0.2 x10^3/uL (0.0-0.7) 0.2 x10^3/uL (0.0-0.7) 0.2 x10^3/uL (0.0-0.7) Basophils # (Auto) 0.1 x10^3/uL (0.0-0.2) 0.0 x10^3/uL (0.0-0.2) 0.1 x10^3/uL (0.0-0.2) Prothrombin Time 12.9 SEC (11.7-14.0) Prothromb Time International Ratio 1.0 (0.8-1.1) Activated Partial Thromboplast Time 30 SEC (24-38) Stool Occult Blood Positive (NEG) Sodium Level 140 mmol/L (136-145) Potassium Level 4.1 mmol/L (3.5-5.1) Chloride Level 104 mmol/L (98-107) Carbon Dioxide Level 23 mmol/L (21-32) Anion Gap 13 (6-14) Blood Urea Nitrogen 30 mg/dL (8-26) Creatinine 1.6 mg/dL (0.7-1.3) Estimated GFR (Cockcroft-Gault) 42.3 BUN/Creatinine Ratio 19 (6-20) Glucose Level 101 mg/dL (70-99) Lactic Acid Level 1.4 mmol/L (0.4-2.0) Calcium Level 8.8 mg/dL (8.5-10.1) Total Bilirubin 0.5 mg/dL (0.2-1.0) Aspartate Amino Transf (AST/SGOT) 22 U/L (15-37) Alanine Aminotransferase (ALT/SGPT) 26 U/L (16-63) Alkaline Phosphatase 92 U/L (46-116) Total Protein 8.1 g/dL (6.4-8.2) Albumin 3.9 g/dL (3.4-5.0) Albumin/Globulin Ratio 0.9 (1.0-1.7) SARS-CoV-2 Antigen (Rapid) Negative (NEGATIVE) Assessment/Plan Assessment/Plan IMP CKD STAGE 3B-CR OF 1.6 URINARY RETENTION ANEMIA RECTAL BLEEDING PLAN HYDRATION RENAL SONOGRAM MAY NEED TO SELF CATH MORE THAN ONCE DAILY GI EVALUATION WILL FOLLOW JAYSON LEON MD Jul 22, 2021 11:03
--- NOTE | 2021-07-22 11:10 | NUR ---
SW following. Discussed with RN, pt from home with , room air, NPO, rapid COVID-19 negative. GI following. RN advised no SW needs at this time. SW will continue to follow.
[2021-07-22] MEDS: AMOXICILLIN 250 MG CAPSULE. PO SCH ×2 (11:13→20:26)
[2021-07-22] MEDS: IV NORMAL SALINE 1000ML BAG 1,000 ML IV SCH ×2 (11:15→20:46)
[2021-07-22 15:00] VITALS: BP 123/70
--- NOTE | 2021-07-22 17:39 | RAD ---
Renal ultrasound 07/22/2021 CLINICAL HISTORY: Urinary retention. TECHNIQUE: A real-time ultrasound examination of both kidneys and the urinary bladder was performed. Multiple images were obtained. FINDINGS: Comparison is made to patient's CTA of the abdomen and pelvis dated 07/18/2019. Both kidneys are within normal limits in size. The right kidney measures 13.8 cm in length. The left kidney measures 13.7 cm in length. Multiple simple cyst is seen involving both kidneys, left greater than right. These measure 1 to 8.8 cm in size. No renal calculus is seen. There is no evidence of hyd ronephrosis. The urinary bladder is distended with urine. No abnormality is seen. The prevoiding volume of the uri nary bladder is 343.5 mL. IMPRESSION: There is no evidence of hydronephrosis. Electronically signed by: Osiel Perdomo MD (07/22/2021 5:36 PM) [id number]
[2021-07-22 19:00] VITALS: BP 135/65
[2021-07-22] MEDS ORDERED: SIMVASTATIN 40 MG TABLET. PO SCH (21:00)
[2021-07-22 23:00] VITALS: BP 122/60
[2021-07-23 03:30] VITALS: BP 131/64
[2021-07-23 07:00] VITALS: BP 138/64
[2021-07-23] MEDS: AMOXICILLIN 250 MG CAPSULE. PO SCH (07:58)
[2021-07-23] MEDS: POTASSIUM CHLORIDE 20 MEQ TABLET.ER. PO SCH (07:58)
[2021-07-23] MEDS: LISINOPRIL 10 MG TABLET PO SCH (07:59)
[2021-07-23] MEDS: METOPROLOL TART IMMED RELEASE 50 MG TABLET. PO SCH (07:59)
[2021-07-23 08:12] LABS: CALCIUM 8.3 mg/dL (8.5-10.1); CREATININE 1.4 mg/dL (0.7-1.3); GFR 49.4; POTASSIUM 4.5 mmol/L (3.5-5.1)
[2021-07-23 08:27] LABS: HEMATOCRIT 38.8 % (39.0-53.0); HEMOGLOBIN 13.1 g/dL (13.0-17.5)
[2021-07-23] MEDS ORDERED: FUROSEMIDE 40 MG TABLET. PO SCH (09:00)
--- NOTE | 2021-07-23 09:18 | PDOC ---
Date of Service: DATE: 07/23/21 TIME: 09:12 Subjective: Subjective: Eating well, feeling better, bleeding is resolving. Has some more questions about having a colonoscopy. Expresses some anxiety about "going under" - attributes to his past experience w/ heart surgery. Asks how he can avoid "pushing" to have a bowel movement - Dr. Cris moreland - discusses Metamucil. 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 Objective: Vital Signs: Vital Signs Date Time Temp Pulse Resp B/P (MAP) Pulse Ox O2 Delivery O2 Flow Rate FiO2 07/23/21 07:59 60 131/64 07/23/21 07:00 98.1 20 96 Room Air 98.1 Labs: Laboratory Tests Test 07/23/21 07:15 Hemoglobin 13.1 g/dL Hematocrit 38.8 % Mean Corpuscular Hemoglobin Concent 34 g/dL Sodium Level 142 mmol/L Potassium Level 4.5 mmol/L Chloride Level 109 mmol/L Carbon Dioxide Level 27 mmol/L Anion Gap 6 Blood Urea Nitrogen 19 mg/dL Creatinine 1.4 mg/dL Estimated GFR (Cockcroft-Gault) 49.4 Glucose Level 114 mg/dL Calcium Level 8.3 mg/dL Imaging: Renal US IMPRESSION: There is no evidence of hydronephrosis. PE: GEN: NAD - breakfast tray 100% consumed LUNGS: CTAB HEART: RRR ABD: S/ND/NT NEURO/PSYCH: A & O 3 A/P: Rectal bleeding - resolving H/o AVR, CKD, anxiety FH colon cancer -- DC per primary. Plan for outpt colonoscopy - our office will call to arrange - his preference might be to schedule @ [facility]. Justicifation of Admission Dx: Justifications for Admission: Justification of Admission Dx: Yes CHACHO HAGEN Jul 23, 2021 09:18
[2021-07-23] MEDS ORDERED: PANT20TA2 PO (10:29)
--- NOTE | 2021-07-23 10:32 | PDOC ---
[employer] PROGRESS NOTE Date of Service DOS: DATE: 07/23/21 TIME: 10:32 Chief Complaint Chief Complaint Rectal bleeding probably secondary to hemorrhoids Chronic hemorrhoids, hypertension, CAD, hyperlipidemia, coronary bypass surgery, aorta surgery, previous tobacco abuse. History of Present Illness History of Present Illness 07/23/2021 Patient seen and examined GI is here evaluating the patient with me He seems to be at his baseline They are okay with discharge We will have him follow-up with GI as an outpatient for endoscopy Vitals/I&O Vitals/I&O: Vital Signs Date Time Temp Pulse Resp B/P (MAP) Pulse Ox O2 Delivery O2 Flow Rate FiO2 07/23/21 07:59 60 131/64 07/23/21 07:55 Room Air 07/23/21 07:00 98.1 20 96 98.1 I & O 07/22/21 07/22/21 07/23/21 15:00 23:00 07:00 Intake Total 320 ml 610 ml 240 ml Balance 320 ml 610 ml 240 ml Physical Exam General: Alert, Oriented X3, Cooperative, No acute distress Heart: Regular rate Abdomen: Normal bowel sounds, Soft, No tenderness Extremities: No clubbing Skin: No breakdown Labs Labs: Laboratory Tests Test 07/23/21 07:15 Hemoglobin 13.1 g/dL (13.0-17.5) Hematocrit 38.8 % (39.0-53.0) Mean Corpuscular Hemoglobin Concent 34 g/dL (31-37) Sodium Level 142 mmol/L (136-145) Potassium Level 4.5 mmol/L (3.5-5.1) Chloride Level 109 mmol/L (98-107) Carbon Dioxide Level 27 mmol/L (21-32) Anion Gap 6 (6-14) Blood Urea Nitrogen 19 mg/dL (8-26) Creatinine 1.4 mg/dL (0.7-1.3) Estimated GFR (Cockcroft-Gault) 49.4 Glucose Level 114 mg/dL (70-99) Calcium Level 8.3 mg/dL (8.5-10.1) Assessment and Plan Assessmemt and Plan Problems Medical Problems: (1) Lower GI bleed Status: Acute (2) Rectal mass Status: Acute Rectal bleeding probably secondary to hemorrhoids Chronic hemorrhoids, hypertension, CAD, hyperlipidemia, coronary bypass surgery, aorta surgery, previous tobacco abuse. Plan Discharge see dictation Comment Review of Relevant I have reviewed the following items sander (where applicable) has been applied. Medications: Current Medications Medications (Trade) Dose Ordered Sig/Luke Route PRN Reason Start Time Stop Time Status Last Admin Dose Admin Furosemide (Lasix) 40 mg DAILY PO 07/23/21 09:00 07/23/21 07:58 Simvastatin (Zocor) 80 mg QHS PO 07/22/21 21:00 07/22/21 20:26 Sodium Chloride 1,000 ml @ 75 mls/hr [id number] IV 07/22/21 11:15 07/22/21 20:46 Justifications for Admission Other Justification ALVARO MIRELES III DO Jul 23, 2021 10:32
--- NOTE | 2021-07-23 10:46 | DS ---
DATE OF DISCHARGE: 07/23/2021 ADMITTING DIAGNOSIS: Rectal bleeding. DISCHARGE DIAGNOSES: Resolving rectal bleeding, probably secondary to hemorrhoids, chronic constipation, gastroesophageal reflux disease, hypertension, overweight, hyperlipidemia. CONSULTS: GI. PROCEDURES: None. HOSPITAL COURSE: The patient is a pleasant elderly male who presented with some rectal bleeding. We admitted the patient and monitor his hemoglobin. We consulted GI. He did not require any transfusions. GI feels like this is mostly hemorrhoids, would like to go and do outpatient endoscopy. We will go ahead and discharge today with close outpatient followup. DISPOSITION: Home. ACTIVITY: As tolerated. DIET: Low sodium. DISCHARGE MEDICATIONS: Please see the MRAD. Protonix 40 a day, aspirin 325 a day, Lasix 40 a day, lisinopril 30 a day, metoprolol 50 b.i.d., potassium 20 a day and simvastatin 80 a day. TOTAL TIME: [address]: Gilberto TID: [id number]
--- NOTE | 2021-07-23 11:02 | SNU/HH DC ---
DISCHARGE WITH HOME HEALTH DISCHARGE INFORMATION: Final Diagnosis: Problems Medical Problems: (1) Lower GI bleed Status: Acute (2) Rectal mass Status: Acute Condition on Discharge: Stable CODE STATUS: Code Status: Full HOME HEALTH: Face to Face: I certify this patient is under my care and that I, or a nurse practitioner or physician's data analysis assistant working with me, had a face to face encounter that meets the physician face to face encounter requirements with this patient on []. 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 POST DISCHARGE ORDERS: Activity Instructions for Disc: Activity as tolerated Weight Bearing Status after Di: As tolerated DIET AFTER DISCHARGE: Cardiac CHECKS AFTER DISCHARGE: Checks after discharge: Check blood press - daily FOLLOW-UP: Follow Up With: your primary care doctor in one week TREATMENT/EQUIPMENT ORDERS: Adaptive Equipment Issued: None CERTIFICATION STATEMENT: Certification Statement: Certification Statement: Based on the above finding, I certify that this patient is confined to the home and needs intermittent senior care care, physical therapy and/or speech therapy, or continues to need occupational therapy.~ This patient is under my care, and I have initiated the establishment of the plan of care.~ This patient will be followed by myself or a community physician who will periodically review the plan of care. Home Meds Active Scripts Pantoprazole Sodium (PROTONIX) 20 Mg Tablet., 1 TAB PO DAILY for ., #30 TAB Prov:ALVARO MIRELES III DO 07/23/21 Reported Medications Lisinopril (LISINOPRIL) 30 Mg Tablet, 1 TAB PO DAILY for b'p, #30 TAB 5 Refills 07/21/21 Metoprolol Tartrate (METOPROLOL TARTRATE) 50 Mg Tablet, 1 TAB PO BID, #60 TAB 5 Refills 03/25/16 Potassium Chloride (POTASSIUM CHLORIDE ) 20 Meq Tablet.er, 20 MEQ PO DAILY, TAB.SR 05/28/15 Aspirin (ASPIRIN) 325 Mg Tablet, 1 TAB PO DAILY, #30 TAB 5 Refills 04/16/15 Furosemide (FUROSEMIDE) 40 Mg Tablet, 1 TAB PO DAILY, #30 TAB 5 Refills 04/16/15 Simvastatin (SIMVASTATIN) 80 Mg Tablet, 1 TAB PO DAILY, #30 TAB 5 Refills 04/16/15 Discontinued Reported Medications Amoxicillin (AMOXICILLIN) 500 Mg Capsule, 1 CAP PO BID for cardiac infx history, #20 CAP 07/21/21 ALVARO MIRELES III DO Jul 23, 2021 11:02
[2021-07-23 11:08] VITALS: BP 102/51
--- NOTE | 2021-07-23 11:52 | PDOC ---
Renal-Progress Notes Subjective Notes Notes NO NEW COMPLAINTS History of Present Illness Hx of present illness STABLE Vitals Vitals Vital Signs Date Time Temp Pulse Resp B/P (MAP) Pulse Ox O2 Delivery O2 Flow Rate FiO2 07/23/21 11:08 98.1 61 20 102/51 (68) 94 Room Air 98.1 Weight Weight [ ] I.O. Intake and Output Intake and Output 07/23/21 07:00 Intake Total 1170 ml Balance 1170 ml Intake Oral 1170 ml # Voids 1 Labs Labs Laboratory Tests Test 07/23/21 07:15 Hemoglobin 13.1 g/dL (13.0-17.5) Hematocrit 38.8 % (39.0-53.0) Mean Corpuscular Hemoglobin Concent 34 g/dL (31-37) Sodium Level 142 mmol/L (136-145) Potassium Level 4.5 mmol/L (3.5-5.1) Chloride Level 109 mmol/L (98-107) Carbon Dioxide Level 27 mmol/L (21-32) Anion Gap 6 (6-14) Blood Urea Nitrogen 19 mg/dL (8-26) Creatinine 1.4 mg/dL (0.7-1.3) Estimated GFR (Cockcroft-Gault) 49.4 Glucose Level 114 mg/dL (70-99) Calcium Level 8.3 mg/dL (8.5-10.1) Review of Systems Constitutional: yes: alert, oriented Ears/Nose/Throat: Yes: no symptom reported Eyes: Yes: no symptom reported Pulmonary: Yes no symptom reported Cardiovascular: Yes no symptom reported Gastrointestional: Yes: hematochezia Genitourinary: Yes: no symptom reported Musculoskeletal: Yes: no symptom reported Skin: Yes no symptom reported Psychiatric/Neurological: Yes: no symptom reported Endocrine: Yes: no symptom reported Physical Exam General Appearance: no apparent distress Skin: warm Respiratory: bilateral CTA Heart: S1S2 Abdomen: soft, bowel sounds present Genitourinary: bladder flat Extremities: pulses present Neurology: alert Musculoskeletal: Osteoarthritis Assessment Assessment IMP CKD STAGE 3B-CR OF 1.6 URINARY RETENTION-SOME BUT NO HYDRO ANEMIA RECTAL BLEEDING PLAN HYDRATION CONT SELF CATH DAILY OP ENDOSCOPY WILL FOLLOW D/C PLANS NOTED JAYSON LEON MD Jul 23, 2021 11:52
--- NOTE | 2021-07-23 12:43 | NUR ---
SW following. Discussed with RN, pt from home with , room air, cardiac diet, COVID-19 negative. PT recommending home with assistance. Discharge order for home with self care. RN advised no SW needs.
--- NOTE | 2021-07-23 12:49 | NUR ---
Patient left with his around 1248. IV discontinued without complications. Therapy came and gave patient instructions on safe mobility prior to dismissal and released him to go home with self care. Discharge instructions gone over by this nurse and the doctor prior to discharge. No concerns noted at discharge.
== END 2021-07-23 13:00 | disposition home or self-care (01) | DRG 393 ==
LOC: ER 19:45 → 5 NORTH 21:20
PROVIDERS: ADMIT Internal Medicine; ATTEND Internal Medicine
DX: K64.9 Unspecified hemorrhoids (principal); K57.31 Diverticulosis of large intestine without perforation or abscess with bleeding; Z68.41 Body mass index [BMI] 40.0-44.9, adult; D64.9 Anemia, unspecified; E66.3 Overweight; E78.00 Pure hypercholesterolemia, unspecified; E78.5 Hyperlipidemia, unspecified; F41.9 Anxiety disorder, unspecified; I12.9 Hypertensive chronic kidney disease with stage 1 through stage 4 chronic kidney disease, or unspecified chronic kidney disease; I25.10 Atherosclerotic heart disease of native coronary artery without angina pectoris; J45.909 Unspecified asthma, uncomplicated; K21.9 Gastro-esophageal reflux disease without esophagitis; K40.90 Unilateral inguinal hernia, without obstruction or gangrene, not specified as recurrent; K59.09 Other constipation; M19.90 Unspecified osteoarthritis, unspecified site; N18.32 Chronic kidney disease, stage 3b; Z80.0 Family history of malignant neoplasm of digestive organs; Z82.49 Family history of ischemic heart disease and other diseases of the circulatory system; Z83.3 Family history of diabetes mellitus; Z87.891 Personal history of nicotine dependence; Z90.49 Acquired absence of other specified parts of digestive tract; Z95.1 Presence of aortocoronary bypass graft; Z87.440 Personal history of urinary (tract) infections
CPT/HCPCS: 36415; 76770; 80048; 80053; 82274; 83605; 85014; 85018; 85025; 85610; 85730; 86850; 86900; 86901; 87426; 93005; 96360; J7030; U0003; U0005; 97110-GP; 99285-25; G0378